=== PATIENT | female | born 1995 | race Caucasian/White ===

== ENCOUNTER 2021-11-13 19:45 | Emergency (ER) | payer BC ==
[2021-11-13 19:51] VITALS: BP 100/67; PULSE 97; TEMP 98; BMI 22.6
[2021-11-13 22:55] LABS: EPI CELLS 32 /uL (0-25.1); HYALINE CASTS 3 /uL (0-3.1); PH,URINE 5.5 (5.0-8.0); URINE APPEARANCE CLOUDY; URINE BACTERIA 282 /uL (0-1359); URINE BILIRUBIN NEGATIVE (NEGATIVE); URINE COLOR YELLOW; URINE GLUCOSE (UA) NEGATIVE (NEGATIVE); URINE KETONE TRACE (NEGATIVE); URINE LEUK ESTERASE 1+ (NEGATIVE); URINE NITRITE NEGATIVE (NEGATIVE); URINE PROTEIN 1+ (NEGATIVE); URINE RBC 9112 /uL (0-23.9); URINE UROBILINOGEN 0.2 mg/dL (0.2-1.0); URINE WBC 92 /uL (0-25.8)
[2021-11-13 22:56] LABS: HCG,QUALITATIVE URINE Negative
== END 2021-11-14 02:06 | disposition home or self-care (01) ==
LOC: JER 19:45
DX: N83.202 Unspecified ovarian cyst, left side (principal); N94.6 Dysmenorrhea, unspecified
CPT/HCPCS: 76856-TC; 81003; 84703; 87086; 99284-25